=== PATIENT | female | born 1930 | race Caucasian/White ===

== ENCOUNTER 2018-06-09 12:28 | Inpatient (IN) ==
[2018-06-09 13:17] LABS: Baso # (Auto) 0.1 th/mm3 (0.0-0.2); Baso % (Auto) 0.5 % (0.0-2.0); Eos # (Auto) 0.1 th/mm3 (0.0-0.4); Eos % (Auto) 0.9 % (0.0-4.0); Hemoglobin 14.6 gm/dL (11.6-15.3); Lymph # (Auto) 0.8 th/mm3 (1.0-4.8); Lymph % (Auto) 7.5 % (9.0-44.0); Mean Corpuscular HGB Conc 33.8 % (32.0-36.0); Mean Corpuscular Hemoglobin 29.2 pg (27.0-34.0); Mean Corpuscular Volume 86.2 fL (80.0-100.0); Mono # (Auto) 0.4 th/mm3 (0.0-0.9); Mono % (Auto) 3.3 % (0.0-8.0); Neut # (Auto) 9.6 th/mm3 (1.8-7.7); Neut % (Auto) 87.8 % (16.0-70.0); Platelet Count 213 th/mm3 (150-450); Red Blood Count 4.99 mil/mm3 (4.00-5.30); Red Cell Distribution Width 15.2 % (11.6-17.2); White Blood Count 10.9 th/mm3 (4.0-11.0)
--- NOTE | 2018-06-09 13:22 | ED ---
HPI General Chief Complaint: Fall Stated Complaint: FALL Time Seen by Provider: 06/09/18 12:37 Source: patient and family Mode of arrival: EMS Limitations: other (dementia) History of Present Illness HPI Narrative: 87-year-old female the presents to the ED via EVAC for evaluation of fall. Patient had a mechanical fall today. Apparently she was on a bedpan when she fell and landed on her right hip. Patient is complaining of pain of the hip since. No head injury. She does take Coumadin. She has any chest pain or shortness of breath. No abdominal pain. She has a chronic history of dementia as well as A. fib. She also has history of diabetes and has a chronic wound to her right leg that is currently being evaluated by her doctor. She states that her pain currently 6 out of 10. More on the hip when she moves. No shortening per ambulance report. Patient appears to be a decent historian but cannot really give me much history about her medication secondary to her dementia. Family was not initially at bedside. Related Data Home Medications Medication Instructions Recorded Confirmed atenolol 50 mg PO BID 06/09/18 06/09/18 digoxin 0.125 mg PO DAILY 06/09/18 06/09/18 doxazosin 1 mg PO DAILY 06/09/18 06/09/18 glipizide 5 mg PO DAILY 06/09/18 06/09/18 metformin 1,000 mg PO BID 06/09/18 06/09/18 warfarin 5 mg PO QTUTHSASU 06/09/18 06/09/18 warfarin 7.5 mg PO 3XW 06/09/18 06/09/18 Allergies Allergy/AdvReac Type Severity Reaction Status Date / Time penicillin G Allergy Severe Rash Verified 06/09/18 14:14 Review of Systems ROS Unobtainable All other systems reviewed negative except as stated in HPI [facility] Medical History Medical History A-fib (Acute) Dementia (Acute) Diabetes mellitus (Acute) Hearing difficulty (Acute) Hypertension (Acute) Social History Social History Substance History: No History of Abuse Smoking Status: Unknown if ever smoked How Often Do You Have a Drink Containing Alcohol: Never Recent Travel in [facility] within the Last 8 Weeks: No Recent Out of Country Travel within the Last 8 Weeks: No Immunization History Tetanus Immunization: Unable to Assess Hx Influenza Vaccine This Season: Unable to Assess Exam Narrative Exam Narrative: GENERAL: Well-appearing SKIN: Focused skin assessment warm/dry. HEAD: Atraumatic. Normocephalic. EYES: Pupils equal and round. No scleral icterus. No injection or drainage. ENT: No nasal bleeding or discharge. Mucous membranes pink and moist. Tongue is midline. No uvula deviation. NECK: Trachea midline. No JVD. CARDIOVASCULAR: Regular rate and rhythm. No murmur appreciated. RESPIRATORY: No accessory muscle use. Clear to auscultation. Breath sounds equal bilaterally. GASTROINTESTINAL: Abdomen soft, non-tender, nondistended. Hepatic and splenic margins not palpable. MUSCULOSKELETAL: No obvious deformities. No clubbing. No cyanosis. No edema. Full range of motion of the upper and lower extremities bilaterally. 2+ pulses bilaterally. Patient does have pain with any range of motion of the right hip. Some bruising noted. No shortening noted. 2+ pulses in the lower extremities bilaterally. Neurovascular intact. NEUROLOGICAL: Awake and alert. No obvious cranial nerve deficits. Motor grossly within normal limits. Normal speech. PSYCHIATRIC: Appropriate mood and affect; insight and judgment normal. Course Initial Documented Vital Signs Pulse Rate 74 06/09/18 12:32 Respiratory Rate 16 06/09/18 12:32 Blood Pressure 168/90 H 06/09/18 12:32 Pulse Oximetry 96 06/09/18 12:32 Last Documented Vital Signs Temperature 98.6 F 06/09/18 16:26 Pulse Rate 103 H 06/09/18 16:26 Respiratory Rate 22 06/09/18 16:26 Blood Pressure 148/93 H 06/09/18 16:26 Pulse Oximetry 94 L 06/09/18 16:26 Medical Decision Making JAYLAN Attestation JAYLAN supervised visit: Yes Attestation: I, Dr. Nunez, have reviewed the advance practice practitioner's documentation and am in agreement, met with the patient face to face, made the diagnosis, and the medical decision making was done by me. *My assessment and Findings: Closed hip fracture. Anticoagulated. Plan is to reverse anticoagulation so that she can have repair tomorrow. Case was discussed with Dr. Corona Luna who is agreement with the plan. [facility] Narrative Medical decision making narrative: 87-year-old female that presents to the ED for evaluation of fall and hip injury. Patient was properly examined and was found to have signs and symptoms consistent with appears to be possible hip injury. X-rays were ordered. Labs were ordered. Labs and imaging showed no sign of acute disease alert and what appears to be right hip fracture. Case discussed with Dr. Luna who agrees to admit to medicine in consult to him. He does want us to reverse the Coumadin for possible surgery tomorrow morning depending on INR. Case was discussed with Dr. Michelle who agrees to admission to his service. He does agree with FFP. This was ordered. My attending Dr. Nunez was made aware of all findings and agrees with plan. Differential Diagnosis Differential Diagnosis: Fracture versus sprain versus strain versus bruise versus contusion Medical Records Medical records reviewed: Yes I reviewed the patient's medical records. Lab Data Lab results reviewed: Yes I reviewed the patient's lab results. Lab results narrative: INR of 2 UA shows possible UTI Result diagrams: 06/09/18 13:04 06/09/18 13:04 Lab Results 06/09/18 06/09/18 06/09/18 Range/Units 13:04 13:04 13:04 WBC 10.9 (4.0-11.0) th/mm3 RBC 4.99 (4.00-5.30) mil/mm3 Hgb 14.6 (11.6-15.3) gm/dL Hct 43.0 (35.0-46.0) % MCV 86.2 (80.0-100.0) fL MCH 29.2 (27.0-34.0) pg MCHC 33.8 (32.0-36.0) % RDW 15.2 (11.6-17.2) % Plt Count 213 (150-450) th/mm3 MPV 8.0 (7.0-11.0) fL Neut % (Auto) 87.8 H (16.0-70.0) % Lymph % (Auto) 7.5 L (9.0-44.0) % Traill % (Auto) 3.3 (0.0-8.0) % Eos % (Auto) 0.9 (0.0-4.0) % Baso % (Auto) 0.5 (0.0-2.0) % Neut # (Auto) 9.6 H (1.8-7.7) th/mm3 Lymph # (Auto) 0.8 L (1.0-4.8) th/mm3 Traill # (Auto) 0.4 (0.0-0.9) th/mm3 Eos # (Auto) 0.1 (0.0-0.4) th/mm3 Baso # (Auto) 0.1 (0.0-0.2) th/mm3 WBC Differential . Differential Comment Auto diff final PT 19.8 H (9.8-11.6) sec INR 2.0 Ratio Sodium 132 L (136-145) meq/L Potassium 4.0 (3.5-5.1) meq/L Chloride 96 L (98-107) meq/L Carbon Dioxide 27.8 (21.0-32.0) meq/L Anion Gap 8 (5-15) meq/L BUN 14 (7-18) mg/dL Creatinine 0.72 (0.50-1.00) mg/dL Estimated GFR 76 L (>89) mL/min Random Glucose 129 H (74-106) mg/dL Calcium 9.4 (8.5-10.1) mg/dL Urine Color (Yellw/Straw) Urine Clarity (Clear) Urine pH (5.0-8.5) Ur Specific [place] (1.002-1.035) Urine Protein (Neg-Trace) mg/dL Urine Glucose (UA) (Negative) mg/dL Urine Ketones (Negative) mg/dL Urine Occult Blood (Negative) Urine Nitrate (Negative) Urine Bilirubin (Negative) Urine Urobilinogen (Less than 2) mg/dL Ur Leukocyte Esterase (Negative) Urine RBC (0-3) /hpf Urine WBC (0-5) /hpf Ur Squamous Epith Cells (0-5) /hpf Micro UA Comment Urine Culture Comments Blood Type Blood Type Recheck Antibody Screen Blood Bank Comment 06/09/18 06/09/18 06/09/18 Range/Units 13:26 14:50 14:50 WBC (4.0-11.0) th/mm3 RBC (4.00-5.30) mil/mm3 Hgb (11.6-15.3) gm/dL Hct (35.0-46.0) % MCV (80.0-100.0) fL MCH (27.0-34.0) pg MCHC (32.0-36.0) % RDW (11.6-17.2) % Plt Count (150-450) th/mm3 MPV (7.0-11.0) fL Neut % (Auto) (16.0-70.0) % Lymph % (Auto) (9.0-44.0) % Traill % (Auto) (0.0-8.0) % Eos % (Auto) (0.0-4.0) % Baso % (Auto) (0.0-2.0) % Neut # (Auto) (1.8-7.7) th/mm3 Lymph # (Auto) (1.0-4.8) th/mm3 [place] # (Auto) (0.0-0.9) th/mm3 Eos # (Auto) (0.0-0.4) th/mm3 Baso # (Auto) (0.0-0.2) th/mm3 WBC Differential Differential Comment PT (9.8-11.6) sec INR Ratio Sodium (136-145) meq/L Potassium (3.5-5.1) meq/L Chloride (98-107) meq/L Carbon Dioxide (21.0-32.0) meq/L Anion Gap (5-15) meq/L BUN (7-18) mg/dL Creatinine (0.50-1.00) mg/dL Estimated GFR (>89) mL/min Random Glucose (74-106) mg/dL Calcium (8.5-10.1) mg/dL Urine Color Yellow (Yellw/Straw) Urine Clarity Hazy H (Clear) Urine pH 6.0 (5.0-8.5) Ur Specific [place] 1.012 (1.002-1.035) Urine Protein 30 H (Neg-Trace) mg/dL Urine Glucose (UA) 150 H (Negative) mg/dL Urine Ketones Trace H (Negative) mg/dL Urine Occult Blood Small H (Negative) Urine Nitrate Negative (Negative) Urine Bilirubin Negative (Negative) Urine Urobilinogen Less than 2 (Less than 2) mg/dL Ur Leukocyte Esterase Small H (Negative) Urine RBC 2 (0-3) /hpf Urine WBC 41 H (0-5) /hpf Ur Squamous Epith Cells 1 (0-5) /hpf Micro UA Comment Culture indicated Urine Culture Comments Culture indicated Blood Type O Positive Blood Type Recheck Not needed Antibody Screen Negative Blood Bank Comment Imaging Data Attestation: I personally reviewed and interpreted this imaging study as follows : Radiologist's impression: Hip X-Ray 06/09/18 12:45 CONCLUSION: Basicervical hip fracture. Pelvis CT 06/09/18 14:20 CONCLUSION: 1. Right transcervical hip fracture which is partially displaced consistent with a grade 3 Garden classification. Chest X-Ray 06/09/18 14:46 CONCLUSION: No acute cardiopulmonary disease. Discharge Plan Discharge Disposition Patient Disposition: 30 Still Patient Discharge Details Diagnosis: Closed hip fracture Physicians Team ED Provider: Davi Nunez ED Midlevel Provider: Derick Montesinos Primary Care Provider: Capo Coffman Attending Provider: Sherif Brock Status ED Status: Admitted Patient
[2018-06-09 13:26] LABS: Prothrombin Time 19.8 sec (9.8-11.6)
[2018-06-09 13:34] LABS: Calcium 9.4 mg/dL (8.5-10.1); Carbon Dioxide 27.8 meq/L (21.0-32.0)
[2018-06-09 14:18] LABS: Bilirubin,Urine Negative (Negative); Clarity,Urine Hazy (Clear); Color,Urine Yellow (Yellw/Straw); Glucose,Urine (UA) 150 mg/dL (Negative); Leukocyte Esterase,Urine Small (Negative); Nitrite,Urine Negative (Negative); Specific Gravity,Urine 1.012 (1.002-1.035); Squamous Epithelial Cell,Urine 1 /hpf (0-5)
--- NOTE | 2018-06-09 14:28 | XR ---
EXAM DATE: 06/09/2018 2:02 PM EDT AGE/SEX: 87 years / Female INDICATIONS: Right hip pain after falling today. CLINICAL DATA: This is the patient's initial encounter. Patient reports that signs and symptoms have been present for 1 day and indicates a pain score of 6/10. MEDICAL/SURGICAL HISTORY: Hypertension. Diabetes mellitus type II. None. COMPARISON: No prior exams available for comparison. FINDINGS: AP and crosstable lateral views of the right hip were obtained and demonstrate a basicervical hip fra cture. There is mild superior migration of the more distal femur. There is diffuse osteopenia. The pubic rami are intact. CONCLUSION: Basicervical hip fracture. Electronically signed by: Nimesh Prather MD 06/09/2018 2:26 PM EDT
[2018-06-09] MEDS ORDERED: Morphine Inj 4 MG/ML Vial IV.PUSH ONE (14:37)
--- NOTE | 2018-06-09 15:24 | XR ---
EXAM DATE: 06/09/2018 3:01 PM EDT AGE/SEX: 87 years / Female INDICATIONS: Fell today, pain right chest and pelvis CLINICAL DATA: This is the patient's initial encounter. Patient reports that signs and symptoms have been present for 1 day and indicates a pain score of 5/10. MEDICAL/SURGICAL HISTORY: . right hip fracture None. COMPARISON: No prior exams available for comparison. FINDINGS: A single AP view of the chest demonstrates the lungs to be symmetrically aerated without evidence of mass, infiltrate or effusion. The cardiomediastinal contours are unremarkable. Osseous structures a re intact. Atherosclerotic changes are present in the aorta. CONCLUSION: No acute cardiopulmonary disease. Electronically signed by: Nimesh Prather MD 06/09/2018 3:23 PM EDT
--- NOTE | 2018-06-09 15:32 | CT ---
EXAM DATE: 06/09/2018 3:16 PM EDT AGE/SEX: 87 years / Female INDICATIONS: Trauma, patient fell injuring pelvis. Evaluate for hematoma and fracture. Right hip fra cture on x-ray. CLINICAL DATA: This is the patient's initial encounter. Patient reports that signs and symptoms have been present for 1 day and indicates a pain score of 10/10. MEDICAL/SURGICAL HISTORY: Diabetes. Hypertension. dementia None. RADIATION DOSE: 23.93 CTDI (mGy) COMPARISON: [facility], HIP RIGHT W AP PELVIS 2V, 06/09/2018. . TECHNIQUE: Multiple contiguous helical axial images were obtained through pelvis following bolus inf usion of 95 ml Omnipaque 350 (iohexol) nonionic water-soluble contrast as a single exam dose. Imag es were obtained using multiple row detector helical technique. . Using automated exposure control an d adjustment of the mA and/or kV according to patient size, radiation dose was kept as low as reasona leonard achievable to obtain optimal diagnostic quality images. DICOM format image data is available eduardo ctronically for review and comparison. FINDINGS: Bowel/Mesentery: The bowel loops are grossly unremarkable. The sigmoid colon has a normal configura tion. Bladder: Contours are smooth. No filling defects are seen on the delayed images. Retroperitoneum: No evidence of deep pelvic adenopathy. Reproductive Organs: No abnormal masses or calcifications seen. Inguinal: The inguinal region is unremarkable without evidence of adenopathy. Bony Structures: There is diffuse osteopenia. There is mild scoliosis and degenerative change in the lower lumbar spine. There is a transcervical fracture which is partially displaced consistent with a grade 3 Garden classification. There is mild superior migration of the distal femur. The acetabulum is intact. The left hip is intact as well. The sacrum and sacroiliac joints are intact as well. Free Fluid: None seen. Post Contrast: No abnormal areas of enhancement seen. CONCLUSION: 1. Right transcervical hip fracture which is partially displaced consistent with a grade 3 Garden cl assification. Electronically signed by: Nimesh Prather MD 06/09/2018 3:30 PM EDT
--- NOTE | 2018-06-09 17:29 | P.HPIM ---
History of Present Illness Service: Pt is 87 yo with afib on coumadin, htn, dm 2 who presents to ED with hip pain. Son her caregiver is present. Says she slipped on stool on floor in her bathroom. Son says she intermittently has stool incontinence. She is found to have hip fracture and Ortho notified by ED and I'm told surgery planned for tomorrow. INR 2 and ffp and vit k given in ED. She seems comfortable after morphine 4mg iv. Son understands the cardiopulmonary risk and risk of with surgery but he wants to proceed to OR as she will certainly w/out hip repair. PMH/PSH htn atrial fib. dm 2 dementia appe. left ear surgery fh. nc sh. no etoh/tob Primary Care Physician: Capo Coffman MD - Diagnosis (1) Hip fracture, right Inpatient Certification: I certify that the inpatient services were ordered in accordance with Medicare regulations governing the order. This includes certification that hospital inpatient services are reasonable and necessary and in the case of services not specified as inpatient-only under 42 CFR 419.22(n), that they are appropriately provided as inpatient services in accordance to with the 2-midnight benchmark under 43 CFR 412.3(e) Review of Systems hip pain slip and fall PMFSH - History History Provided By: Patient, [employer] / EMT - Medical History Medical History: Medical History (Last Reviewed 06/09/18 @ 13:19 by ALEENA Agarwal) A-fib Dementia Diabetes mellitus Hearing difficulty Hypertension - Tobacco History Smoking Status: Unknown if ever smoked - Alcohol History How Often Do You Have a Drink Containing Alcohol: Never - Substance Use History Substance History: No History of Abuse - Travel History Recent Travel in the [place] Within the Last 8 Weeks: No Recent Travel Out of the Country Within the Last 8 Weeks: No - Immunization History Tetanus Immunization: Unable to Assess Hx Influenza Vaccine This Season: Unable to Assess Medications and Allergies Allergies Allergy/AdvReac Type Severity Reaction Status Date / Time penicillin G Allergy Severe Rash Verified 06/09/18 14:14 Home Medications Medication Instructions Recorded Confirmed Type atenolol 50 mg PO BID 06/09/18 06/09/18 History digoxin 0.125 mg PO DAILY 06/09/18 06/09/18 History doxazosin 1 mg PO DAILY 06/09/18 06/09/18 History glipizide 5 mg PO DAILY 06/09/18 06/09/18 History metformin 1,000 mg PO BID 06/09/18 06/09/18 History warfarin 5 mg PO QTUTHSASU 06/09/18 06/09/18 History warfarin 7.5 mg PO 3XW 06/09/18 06/09/18 History Exam Vital signs: Vital Signs 06/09/18 12:32 06/09/18 12:39 06/09/18 12:55 Temperature Pulse Rate 74 79 80 Respiratory Rate 16 16 16 Blood Pressure 168/90 H 189/87 H 189/87 H Pulse Oximetry 96 100 97 06/09/18 15:23 06/09/18 16:06 06/09/18 16:25 Temperature Pulse Rate 102 H Respiratory Rate 17 16 Blood Pressure 144/73 H Pulse Oximetry 94 L 95 06/09/18 16:26 06/09/18 16:45 06/09/18 17:12 Temperature 98.6 F Pulse Rate 103 H 111 H 110 H Respiratory Rate 22 20 20 Blood Pressure 148/93 H 150/86 H 147/82 H Pulse Oximetry 94 L 98 97 Intake & Output 06/08/18 06/09/18 06/09/18 18:59 06:59 18:59 Intake Total 0 / 0 Balance 0 / 0 Weight 58.967 kg Intake: Intake (Blood Product) Amt 0 / 0 Plasma Thawed 5 Day Cp2d Unit 0 / 0 [id number] heart irreg lung cta abd s/nt ext no edema currently oriented. follows commands right leg externally rotated. good pulses. Results - Labs CBC & Chem 7: 06/09/18 13:04 06/09/18 13:04 Labs: Short CBC 06/09/18 Range/Units 13:04 WBC 10.9 (4.0-11.0) th/mm3 Hgb 14.6 (11.6-15.3) gm/dL Hct 43.0 (35.0-46.0) % Plt Count 213 (150-450) th/mm3 BMP 06/09/18 13:04 Sodium 132 L Potassium 4.0 Chloride 96 L Carbon Dioxide 27.8 BUN 14 Creatinine 0.72 Calcium 9.4 Urine 06/09/18 Range/Units 13:26 Urine Color Yellow (Yellw/Straw) Urine Clarity Hazy H (Clear) Urine pH 6.0 (5.0-8.5) Ur Specific [place] 1.012 (1.002-1.035) Urine Protein 30 H (Neg-Trace) mg/dL Urine Glucose (UA) 150 H (Negative) mg/dL - Imaging Impressions Hip X-Ray 06/09/18 12:45 CONCLUSION: Basicervical hip fracture. Pelvis CT 06/09/18 14:20 CONCLUSION: 1. Right transcervical hip fracture which is partially displaced consistent with a grade 3 Garden classification. Chest X-Ray 06/09/18 14:46 CONCLUSION: No acute cardiopulmonary disease. Caprini VTE Risk Assessment Caprini VTE Risk Assessment: Moderate/High Risk (score >= 2) Caprini Risk Assessment Model: Point Value = 1 Point Value = 2 Point Value = 3 Point Value = 5 Age 41-60 Minor surgery BMI > 25 kg/m2 Swollen legs Varicose veins or History of unexplained or recurrent spontaneous Oral contraceptives or hormone replacement Sepsis (< 1 month) Serious lung disease, including pneumonia (< 1 month) Abnormal pulmonary function Acute myocardial infarction Congestive heart failure (< 1 month) History of inflammatory bowel disease Medical patient at bed rest Age 61-74 Arthroscopic surgery Major open surgery (> 45 min) Laparoscopic surgery (> 45 min) Malignancy Confined to bed (> 72 hours) Immobilizing plaster cast Central venous access Age >= 75 History of VTE Family history of VTE Factor V Leiden Prothrombin [id number] Lupus anticoagulant Anticardiolipin antibodies Elevated serum homocysteine Heparin-induced thrombocytopenia Other congenital or acquired thrombophilia Stroke (< 1 month) Elective arthroplasty Hip, pelvis, or leg fracture Acute spinal cord injury (< 1 month) Prophylaxis Regimen: Total Risk Factor Score Risk Level Prophylaxis Regimen 0-1 Low Early ambulation 2 Moderate Order ONE of the following: *Sequential Compression Device (SCD) *Heparin 5000 units SQ BID 3-4 Higher Order ONE of the following medications: *Heparin 5000 units SQ TID *Enoxaparin/Lovenox 40 mg SQ daily (WT < 150 kg, CrCl > 30 mL/min) *Enoxaparin/Lovenox 30 mg SQ daily (WT < 150 kg, CrCl > 10-29 mL/min) *Enoxaparin/Lovenox 30 mg SQ BID (WT < 150 kg, CrCl > 30 mL/min) AND/OR *Sequential Compression Device (SCD) 5 or more Highest Order ONE of the following medications: *Heparin 5000 units SQ TID (Preferred with Epidurals) *Enoxaparin/Lovenox 40 mg SQ daily (WT < 150 kg, CrCl > 30 mL/min) *Enoxaparin/Lovenox 30 mg SQ daily (WT < 150 kg, CrCl > 10-29 mL/min) *Enoxaparin/Lovenox 30 mg SQ BID (WT < 150 kg, CrCl > 30 mL/min) AND *Sequential Compression Device (SCD) Assessment and Plan - Assessment (1) Hip fracture, right Code(s): S72.001A - Fracture of unspecified part of neck of right femur, initial encounter for closed fracture Status: Acute Plan: 1. right hip fracture. s/p slip and fall. pt is currently receiving ffp and vit k. will reassess inr in AM ekg ordered and pending ortho consulted and pt/son ok with proceeding to OR for necessary surgical repair of this fx diabetic diet tonight. ssi. hold oha. npo after MN for probabl surgery tomorrow cont other home meds for afib/htn PT eval consult CM for snf. 2. afib. anticoagulated 3. dm 2 4. htn
[2018-06-09] MEDS ORDERED: Dextrose 50% in Water 50 ML Vial IV.PUSH PRN (17:37)
[2018-06-09] MEDS: Insulin NovoLOG Aspart Correctional Sugar Inj SQ SCH (22:52)
[2018-06-09] MEDS: Atenolol 50 MG Tablet PO SCH (22:52)
--- NOTE | 2018-06-10 07:20 | MB ---
cc: Timmy Mendoza MD DATE: 06/10/2018 REASON FOR CONSULTATION: Right femoral neck fracture. HISTORY OF PRESENT ILLNESS: Annie is an 87-year-old female who has a history of atrial fibrillation, hypertension and type 2 diabetes. She slipped and fell in the bathroom. She landed on her right side. She had immediate right hip pain. She was unable to stand or ambulate. She presented to the emergency room. X-rays revealed a displaced right femoral neck fracture. She is currently awake and alert on the orthopedic floor. Her only complaint is her right hip. Pain is worse with movement. She denies dizziness, syncope, or loss of consciousness. PAST MEDICAL HISTORY: Hypertension, atrial fibrillation, diabetes, and hearing loss. SOCIAL HISTORY: The patient lives at home independently. She denies alcohol, tobacco or drug use. FAMILY HISTORY: Noncontributory. REVIEW OF SYSTEMS: The patient denies fevers or chills, weight loss, headache, visual changes, hearing loss, chest pain, palpitations, shortness of breath, nausea or vomiting, diarrhea, neck pain, back pain, skin rashes, weakness or numbness of extremities, anxiety or depression. She has chronic urinary incontinence. She complains of right hip pain. LABORATORY DATA: The patient has an elevated INR of 2.0 on 06/09/2018. White blood cell count is 10.9, hematocrit is 43.0, platelet count is 213. Creatinine is 0.72, potassium is 4.0. IMAGING STUDIES: X-rays and CT scan of right hip were reviewed. X-rays reveal a displaced right femoral neck fracture. PHYSICAL EXAMINATION: GENERAL: The patient is a well-developed, well-nourished 87-year-old female. She is awake and alert. She is in no acute distress. She appears well-developed and well-nourished. She is mildly overweight. VITAL SIGNS: Temperature 98.8, pulse 107, respirations 20, blood pressure 153/96, O2 saturations 99% on 2 liters nasal cannula. HEENT: Head: The patient is normocephalic. Pupils are equal. NECK: Soft, nontender. The trachea is in the midline. ABDOMEN: Soft, nontender and nondistended. EXTREMITIES: Examination of the bilateral upper extremities reveals no pain with shoulder, elbow or wrist motion. She has intact sensation in all fingers. She has good cap refill in all fingers. Skin is intact to both hands. Examination of the left leg reveals no pain with hip, knee or ankle motion. Skin is intact. Dorsalis pedis pulse is palpable. Sensation is intact in the left foot. Examination of the right leg reveals pain with any hip motion. She has minimal tenderness around her knee, tibia or ankle. She has good capillary refill in all her toes. Sensation is intact to the right foot. IMPRESSION: 1. Diabetes. 2. Hypertension. 3. Atrial fibrillation. 4. Displaced right femoral neck fracture. PLAN: Treatment options were discussed with the patient. At this point, I would recommend right hip hemiarthroplasty. The risks of surgery included bleeding, infection; injury to arteries, nerves and vessels; nonunion, hip dislocation, leg length discrepancies as well as medical complications including blood clot, stroke, heart attack and . All questions were answered. I will plan on surgery today if she is medically cleared. The patient's INR will need to be corrected. She has received vitamin K and fresh frozen plasma. I will recheck INR today. Postoperatively, the patient will be placed back on her Coumadin. Physical therapy will be consulted. A mid-level provider in my office, nurse practitioner or PA, may see this patient on a follow-up basis and continue to implement the objective of this plan including: Starting or adjusting medications, injections of muscle, tendon, bursa or joints, cast application, orthotic or brace application, physical therapy, further radiographic studies including x-ray, MRI, CT, ultrasounds or bone scan, vascular studies, neurologic studies, or other specialist consultations, and proceeding with surgical management as appropriate. MD BAMBI Torres/DAVID , 07:02 AM , 07:19 AM
[2018-06-10] MEDS: Insulin NovoLOG Aspart Correctional Sugar Inj SQ SCH ×4 (08:01→21:02)
[2018-06-10] MEDS: Atenolol 50 MG Tablet PO SCH ×2 (08:01→21:04)
[2018-06-10] MEDS: Doxazosin 1 MG Tablet PO SCH (08:17)
[2018-06-10] MEDS ORDERED: SODIUM CHLOR 0.9% IV.SIG SCH (08:48)
[2018-06-10] MEDS ORDERED: TRANEXAMIC ACID IV.SIG SCH (08:48)
[2018-06-10 09:11] LABS: Hematocrit 43.7 % (35.0-46.0); Hemoglobin 14.6 gm/dL (11.6-15.3); Mean Corpuscular HGB Conc 33.4 % (32.0-36.0); Mean Corpuscular Hemoglobin 28.4 pg (27.0-34.0); Mean Corpuscular Volume 85.1 fL (80.0-100.0); Platelet Count 183 th/mm3 (150-450); Red Blood Count 5.13 mil/mm3 (4.00-5.30); Red Cell Distribution Width 15.6 % (11.6-17.2); White Blood Count 12.5 th/mm3 (4.0-11.0)
[2018-06-10 09:24] LABS: INR 1.2 Ratio; Prothrombin Time 11.9 sec (9.8-11.6)
--- NOTE | 2018-06-10 09:29 | P.PNIM ---
Subjective Interval history: Pt not having much pain this morning She is NPO awaiting surgery today Vitals are stable Physical Exam Vital signs: Vital Signs 06/09/18 12:32 06/09/18 12:39 06/09/18 12:55 Temperature Pulse Rate 74 79 80 Respiratory Rate 16 16 16 Blood Pressure 168/90 H 189/87 H 189/87 H Pulse Oximetry 96 100 97 06/09/18 15:23 06/09/18 16:06 06/09/18 16:25 Temperature Pulse Rate 102 H Respiratory Rate 17 16 Blood Pressure 144/73 H Pulse Oximetry 94 L 95 06/09/18 16:26 06/09/18 16:45 06/09/18 17:12 Temperature 98.6 F Pulse Rate 103 H 111 H 110 H Respiratory Rate 22 20 20 Blood Pressure 148/93 H 150/86 H 147/82 H Pulse Oximetry 94 L 98 97 06/09/18 17:29 06/09/18 17:42 06/09/18 17:44 Temperature 98.8 F 98.8 F Pulse Rate 104 H 106 H 107 H Respiratory Rate 20 20 20 Blood Pressure 158/102 H 153/96 H 153/96 H Pulse Oximetry 99 100 99 06/09/18 19:30 06/09/18 20:00 06/10/18 00:00 Temperature 97.7 F 97.7 F Pulse Rate 102 H 121 H 97 H Respiratory Rate 18 20 20 Blood Pressure 167/77 H 170/99 H 159/87 H Pulse Oximetry 97 96 96 Intake & Output 06/09/18 06/10/18 06/10/18 18:59 06:59 18:59 Intake Total 343 / 343 Balance 343 / 343 Weight 58.967 kg Intake: Intake (Blood Product) Amt 343 / 343 Plasma Thawed 5 Day Cp2d Unit 343 / 343 [id number] Other: # Voids 4 Narrative: GENERAL: NAD, Awake and alert, pleasantly confused CARDIO: Irregularly irregular. RESP: CTA bilaterally. No accessory muscle use. ABD: +BS, soft, non-tender, nondistended. EXT: No edema. Results - Labs CBC & Chem 7: 06/10/18 08:18 06/09/18 13:04 Laboratory Results - last 24 hr 06/09/18 06/09/18 06/09/18 13:04 13:04 13:04 WBC 10.9 RBC 4.99 Hgb 14.6 Hct 43.0 MCV 86.2 MCH 29.2 MCHC 33.8 RDW 15.2 Plt Count 213 MPV 8.0 Neut % (Auto) 87.8 H Lymph % (Auto) 7.5 L [place] % (Auto) 3.3 Eos % (Auto) 0.9 Baso % (Auto) 0.5 Neut # (Auto) 9.6 H Lymph # (Auto) 0.8 L [place] # (Auto) 0.4 Eos # (Auto) 0.1 Baso # (Auto) 0.1 WBC Differential . Differential Comment Auto diff final PT 19.8 H INR 2.0 Sodium 132 L Potassium 4.0 Chloride 96 L Carbon Dioxide 27.8 Anion Gap 8 BUN 14 Creatinine 0.72 Estimated GFR 76 L POC Glucose Random Glucose 129 H Calcium 9.4 Urine Color Urine Clarity Urine pH Ur Specific [place] Urine Protein Urine Glucose (UA) Urine Ketones Urine Occult Blood Urine Nitrate Urine Bilirubin Urine Urobilinogen Ur Leukocyte Esterase Urine RBC Urine WBC Ur Squamous Epith Cells Micro UA Comment Urine Culture Comments Blood Type Blood Type Recheck Antibody Screen Blood Bank Comment 06/09/18 06/09/18 06/09/18 13:26 14:50 14:50 WBC RBC Hgb Hct MCV MCH MCHC RDW Plt Count MPV Neut % (Auto) Lymph % (Auto) [place] % (Auto) Eos % (Auto) Baso % (Auto) Neut # (Auto) Lymph # (Auto) [place] # (Auto) Eos # (Auto) Baso # (Auto) WBC Differential Differential Comment PT INR Sodium Potassium Chloride Carbon Dioxide Anion Gap BUN Creatinine Estimated GFR POC Glucose Random Glucose Calcium Urine Color Yellow Urine Clarity Hazy H Urine pH 6.0 Ur Specific [place] 1.012 Urine Protein 30 H Urine Glucose (UA) 150 H Urine Ketones Trace H Urine Occult Blood Small H Urine Nitrate Negative Urine Bilirubin Negative Urine Urobilinogen Less than 2 Ur Leukocyte Esterase Small H Urine RBC 2 Urine WBC 41 H Ur Squamous Epith Cells 1 Micro UA Comment Culture indicated Urine Culture Comments Culture indicated Blood Type O Positive Blood Type Recheck Not needed Antibody Screen Negative Blood Bank Comment 06/09/18 06/09/18 06/10/18 21:20 21:22 07:57 WBC RBC Hgb Hct MCV MCH MCHC RDW Plt Count MPV Neut % (Auto) Lymph % (Auto) [place] % (Auto) Eos % (Auto) Baso % (Auto) Neut # (Auto) Lymph # (Auto) [place] # (Auto) Eos # (Auto) Baso # (Auto) WBC Differential Differential Comment PT INR Sodium Potassium Chloride Carbon Dioxide Anion Gap BUN Creatinine Estimated GFR POC Glucose 211 H 185 H 158 H Random Glucose Calcium Urine Color Urine Clarity Urine pH Ur Specific [place] Urine Protein Urine Glucose (UA) Urine Ketones Urine Occult Blood Urine Nitrate Urine Bilirubin Urine Urobilinogen Ur Leukocyte Esterase Urine RBC Urine WBC Ur Squamous Epith Cells Micro UA Comment Urine Culture Comments Blood Type Blood Type Recheck Antibody Screen Blood Bank Comment 06/10/18 06/10/18 08:18 08:18 WBC 12.5 H RBC 5.13 Hgb 14.6 Hct 43.7 MCV 85.1 MCH 28.4 MCHC 33.4 RDW 15.6 Plt Count 183 MPV 8.0 Neut % (Auto) Lymph % (Auto) [place] % (Auto) Eos % (Auto) Baso % (Auto) Neut # (Auto) Lymph # (Auto) [place] # (Auto) Eos # (Auto) Baso # (Auto) WBC Differential Differential Comment PT Cancelled INR Cancelled Sodium Potassium Chloride Carbon Dioxide Anion Gap BUN Creatinine Estimated GFR POC Glucose Random Glucose Calcium Urine Color Urine Clarity Urine pH Ur Specific [place] Urine Protein Urine Glucose (UA) Urine Ketones Urine Occult Blood Urine Nitrate Urine Bilirubin Urine Urobilinogen Ur Leukocyte Esterase Urine RBC Urine WBC Ur Squamous Epith Cells Micro UA Comment Urine Culture Comments Blood Type Blood Type Recheck Antibody Screen Blood Bank Comment - Imaging Impressions Hip X-Ray 06/09/18 12:45 CONCLUSION: Basicervical hip fracture. Pelvis CT 06/09/18 14:20 CONCLUSION: 1. Right transcervical hip fracture which is partially displaced consistent with a grade 3 Garden classification. Chest X-Ray 06/09/18 14:46 CONCLUSION: No acute cardiopulmonary disease. Assessment and Plan - Assessment (1) Hip fracture, right Code(s): S72.001A - Fracture of unspecified part of neck of right femur, initial encounter for closed fracture Status: Acute Plan: Right hip fracture, s/p slip and fall - Pt is an 87 y/o female with atrial fibrillation on chronic anticoagulation with Coumadin. - Pt had a slip and fall at home and was found to have a right transcervical hip fracture which is partially displaced consistent with a grade 3 Garden classification. - INR was 2 at admission. Pt received FFP and Vit K in the ED - Awaiting repeat INR today - Orthopedic surgery is following - Pt is tentatively planned for surgical intervention today - POst-op pain control per Ortho - Pt will need PT daily after surgery - Pts son is agreeable to SNF at the end of this hospitalization. A. fib on chronic anticoagulation with Coumadin - Cont. Digoxin - Telemetry DM, type 2 - NovoLog SSI - Accucheck HTN - Cont. home meds - Monitor
[2018-06-10 09:40] LABS: Anion Gap 11 meq/L (5-15); Blood Urea Nitrogen 12 mg/dL (7-18); Calcium 8.7 mg/dL (8.5-10.1); Carbon Dioxide 28.2 meq/L (21.0-32.0); Chloride 92 meq/L (98-107); Glomerular Filtration Rate Greater Than 89 mL/min (>89); Glucose,Random 148 mg/dL (74-106); Potassium 3.4 meq/L (3.5-5.1); Sodium 131 meq/L (136-145)
[2018-06-10] MEDS: Digoxin 125 MCG Tablet PO SCH (09:48)
--- NOTE | 2018-06-10 10:07 | ECG ---
Date Performed: 06/09/2018 Time Performed: 22:04:02 PTAGE: 87 years EKG: ATRIAL FIBRILLATION WITH RAPID VENTRICULAR RESPONSE BORDERLINE LEFT AXIS DEVIATION ST DEVIA TION AND MODERATE T-WAVE ABNORMALITY, CONSIDER LATERAL ISCHEMIA ABNORMAL ECG PREVIOUS TRACING : 06/30/2007 12.42 DOCTOR: Jay Ray Interpretating Date/Time 06/10/2018 10:05:59
[2018-06-10] MEDS ORDERED: Tranexamic Acid Inj 0 MG in Sodium Chlor 0.9% Inj 100 ML IV.SIG SCH (11:00)
[2018-06-10] MEDS ORDERED: Chlorhexidine Gluconate 2% 1 Pack (2 Cloths) TOPICAL SCH (11:15)
[2018-06-10] MEDS ORDERED: Metoprolol Tartrate 25 MG Tablet PO SCH (11:15)
--- NOTE | 2018-06-10 11:50 | P.PNOP ---
Subjective Interval history: s/p fall right hip pain. Physical Exam Vital signs: Vital Signs 06/09/18 12:32 06/09/18 12:39 06/09/18 12:55 Temperature Pulse Rate 74 79 80 Respiratory Rate 16 16 16 Blood Pressure 168/90 H 189/87 H 189/87 H Pulse Oximetry 96 100 97 06/09/18 15:23 06/09/18 16:06 06/09/18 16:25 Temperature Pulse Rate 102 H Respiratory Rate 17 16 Blood Pressure 144/73 H Pulse Oximetry 94 L 95 06/09/18 16:26 06/09/18 16:45 06/09/18 17:12 Temperature 98.6 F Pulse Rate 103 H 111 H 110 H Respiratory Rate 22 20 20 Blood Pressure 148/93 H 150/86 H 147/82 H Pulse Oximetry 94 L 98 97 06/09/18 17:29 06/09/18 17:42 06/09/18 17:44 Temperature 98.8 F 98.8 F Pulse Rate 104 H 106 H 107 H Respiratory Rate 20 20 20 Blood Pressure 158/102 H 153/96 H 153/96 H Pulse Oximetry 99 100 99 06/09/18 19:30 06/09/18 20:00 06/10/18 00:00 Temperature 97.7 F 97.7 F Pulse Rate 102 H 121 H 97 H Respiratory Rate 18 20 20 Blood Pressure 167/77 H 170/99 H 159/87 H Pulse Oximetry 97 96 96 06/10/18 08:00 Temperature 97.9 F Pulse Rate 69 Respiratory Rate 16 Blood Pressure 158/70 H Pulse Oximetry 98 Intake & Output 06/09/18 06/10/18 06/10/18 18:59 06:59 18:59 Intake Total 343 / 343 Balance 343 / 343 Weight 58.967 kg Intake: Intake (Blood Product) Amt 343 / 343 Plasma Thawed 5 Day Cp2d Unit 343 / 343 [id number] Other: # Voids 4 Narrative: RLE: pain with motion. nvi Results - Labs CBC & Chem 7: 06/10/18 08:18 06/10/18 08:18 Laboratory Results - last 24 hr 06/09/18 06/09/18 06/09/18 13:04 13:04 13:04 WBC 10.9 RBC 4.99 Hgb 14.6 Hct 43.0 MCV 86.2 MCH 29.2 MCHC 33.8 RDW 15.2 Plt Count 213 MPV 8.0 Neut % (Auto) 87.8 H Lymph % (Auto) 7.5 L [place] % (Auto) 3.3 Eos % (Auto) 0.9 Baso % (Auto) 0.5 Neut # (Auto) 9.6 H Lymph # (Auto) 0.8 L [place] # (Auto) 0.4 Eos # (Auto) 0.1 Baso # (Auto) 0.1 WBC Differential . Differential Comment Auto diff final PT 19.8 H INR 2.0 Sodium 132 L Potassium 4.0 Chloride 96 L Carbon Dioxide 27.8 Anion Gap 8 BUN 14 Creatinine 0.72 Estimated GFR 76 L POC Glucose Random Glucose 129 H Calcium 9.4 Urine Color Urine Clarity Urine pH Ur Specific [place] Urine Protein Urine Glucose (UA) Urine Ketones Urine Occult Blood Urine Nitrate Urine Bilirubin Urine Urobilinogen Ur Leukocyte Esterase Urine RBC Urine WBC Ur Squamous Epith Cells Micro UA Comment Urine Culture Comments Blood Type Blood Type Recheck Antibody Screen Blood Bank Comment 06/09/18 06/09/18 06/09/18 13:26 14:50 14:50 WBC RBC Hgb Hct MCV MCH MCHC RDW Plt Count MPV Neut % (Auto) Lymph % (Auto) [place] % (Auto) Eos % (Auto) Baso % (Auto) Neut # (Auto) Lymph # (Auto) [place] # (Auto) Eos # (Auto) Baso # (Auto) WBC Differential Differential Comment PT INR Sodium Potassium Chloride Carbon Dioxide Anion Gap BUN Creatinine Estimated GFR POC Glucose Random Glucose Calcium Urine Color Yellow Urine Clarity Hazy H Urine pH 6.0 Ur Specific [place] 1.012 Urine Protein 30 H Urine Glucose (UA) 150 H Urine Ketones Trace H Urine Occult Blood Small H Urine Nitrate Negative Urine Bilirubin Negative Urine Urobilinogen Less than 2 Ur Leukocyte Esterase Small H Urine RBC 2 Urine WBC 41 H Ur Squamous Epith Cells 1 Micro UA Comment Culture indicated Urine Culture Comments Culture indicated Blood Type O Positive Blood Type Recheck Not needed Antibody Screen Negative Blood Bank Comment 06/09/18 06/09/18 06/10/18 21:20 21:22 07:57 WBC RBC Hgb Hct MCV MCH MCHC RDW Plt Count MPV Neut % (Auto) Lymph % (Auto) [place] % (Auto) Eos % (Auto) Baso % (Auto) Neut # (Auto) Lymph # (Auto) [place] # (Auto) Eos # (Auto) Baso # (Auto) WBC Differential Differential Comment PT INR Sodium Potassium Chloride Carbon Dioxide Anion Gap BUN Creatinine Estimated GFR POC Glucose 211 H 185 H 158 H Random Glucose Calcium Urine Color Urine Clarity Urine pH Ur Specific [place] Urine Protein Urine Glucose (UA) Urine Ketones Urine Occult Blood Urine Nitrate Urine Bilirubin Urine Urobilinogen Ur Leukocyte Esterase Urine RBC Urine WBC Ur Squamous Epith Cells Micro UA Comment Urine Culture Comments Blood Type Blood Type Recheck Antibody Screen Blood Bank Comment 06/10/18 06/10/18 06/10/18 08:18 08:18 08:18 WBC 12.5 H RBC 5.13 Hgb 14.6 Hct 43.7 MCV 85.1 MCH 28.4 MCHC 33.4 RDW 15.6 Plt Count 183 MPV 8.0 Neut % (Auto) Lymph % (Auto) [place] % (Auto) Eos % (Auto) Baso % (Auto) Neut # (Auto) Lymph # (Auto) [place] # (Auto) Eos # (Auto) Baso # (Auto) WBC Differential Differential Comment PT Cancelled INR Cancelled Sodium 131 L Potassium 3.4 L Chloride 92 L Carbon Dioxide 28.2 Anion Gap 11 BUN 12 Creatinine 0.58 Estimated GFR Greater than 89 POC Glucose Random Glucose 148 H Calcium 8.7 Urine Color Urine Clarity Urine pH Ur Specific [place] Urine Protein Urine Glucose (UA) Urine Ketones Urine Occult Blood Urine Nitrate Urine Bilirubin Urine Urobilinogen Ur Leukocyte Esterase Urine RBC Urine WBC Ur Squamous Epith Cells Micro UA Comment Urine Culture Comments Blood Type Blood Type Recheck Antibody Screen Blood Bank Comment 06/10/18 08:18 WBC RBC Hgb Hct MCV MCH MCHC RDW Plt Count MPV Neut % (Auto) Lymph % (Auto) [place] % (Auto) Eos % (Auto) Baso % (Auto) Neut # (Auto) Lymph # (Auto) [place] # (Auto) Eos # (Auto) Baso # (Auto) WBC Differential Differential Comment PT 11.9 H INR 1.2 Sodium Potassium Chloride Carbon Dioxide Anion Gap BUN Creatinine Estimated GFR POC Glucose Random Glucose Calcium Urine Color Urine Clarity Urine pH Ur Specific [place] Urine Protein Urine Glucose (UA) Urine Ketones Urine Occult Blood Urine Nitrate Urine Bilirubin Urine Urobilinogen Ur Leukocyte Esterase Urine RBC Urine WBC Ur Squamous Epith Cells Micro UA Comment Urine Culture Comments Blood Type Blood Type Recheck Antibody Screen Blood Bank Comment - Imaging Impressions Hip X-Ray 06/09/18 12:45 CONCLUSION: Basicervical hip fracture. Pelvis CT 06/09/18 14:20 CONCLUSION: 1. Right transcervical hip fracture which is partially displaced consistent with a grade 3 Garden classification. Chest X-Ray 06/09/18 14:46 CONCLUSION: No acute cardiopulmonary disease. Assessment and Plan - Assessment and Plan 1) Right Femoral Neck Fx -npo -consents -surgery this AM with Reji for hemiarthroplasty E-FORMoleculera LabsE Prescription Drug Monitoring Database has been queried and verified prior to prescribing the controlled substance. Acute pain exception. This patient has normal, predicted, physiological, and time limited response to an adverse mechanical stimulus associated with surgery, trauma, or acute illness as described in my notes. There is a lack of alternative treatment options other than to include the prescribed narcotic treatment for this condition.
[2018-06-10] MEDS ORDERED: Sodium Chlor 0.9% Inj 500 ML IV.SIG SCH (12:00)
[2018-06-10] MEDS ORDERED: Clindamycin Inj 600 MG/4 ML Vial ONE (12:15)
[2018-06-10] MEDS ORDERED: Post-op Orders (for Pharmacy) OTHER STA (13:24)
--- NOTE | 2018-06-10 13:24 | P.OP ---
- Preoperative Diagnosis (1) Displaced fracture of right femoral neck Date of procedure: 06/10/18 Procedure: Right hip hemiarthroplasty Anesthesia: GETA Surgeon: Timmy Soriano MD Journey Lineman: LALO Aparicio PA-C The surgical procedure was assisted by my physician learning and development assistant. My P.A. presence was necessary throughout this case for the manipulation and positioning of the surgical extremity. My P.A. was assisting me throughout the duration of this procedure. The skill set of a physician learning and development assistant was medically necessary to complete this procedure. During the surgical case the regional vice president surgical sales was working at the back table and the physician learning and development assistant was directly assisting me. Operation and Findings: PLAN OF ACTIVITY Weight bear as tolerated. IMPLANTS USED DePuy cemented [place] size [6] stem with size [46] bipolar head and [+5] neck. DETAILS OF PROCEDURE This patient was brought into the operating room and placed on the OR table. The patient was given anesthesia. The patient received IV antibiotics. The patient was then placed in lateral decubitus position. The hip and leg were prepped with alcohol, followed by Hibiclens and draped in a usual sterile fashion. Clean air was used for this procedure. Time out procedure was performed. The procedure began with a 5 inch incision over the posterolateral hip. The subcutaneous tissue was dissected with the Bovie. The iliotibial band were split in line with fibers. The Charnley retractor was placed. The piriformis and external rotators were released from the femur and tagged with a #1 Vicryl suture. The capsule is now incised and tagged with #1 Vicryl. The femoral neck fracture was now visualized. A corkscrew was now used to remove the femoral head. The femoral head was sized and measured. Soft tissue was now protected. The hip skid was placed underneath the femoral neck. An oscillating saw was used to make a femoral neck cut. At this point attention was turned to preparation of the proximal femur. A box osteotome was used to remove the lateral cortex of the femoral neck. The T- handle reamer was used to open the femoral canal. The canal was now reamed. Next , the canal was broached up to appropriate size. A lateralizing reamer was used to help lateralize the prosthesis. At this point a trial head and neck were placed. The hip was reduced. The patient was found to have excellent stability with good range of motion. Trial components were removed. Soft tissue and bone were thoroughly irrigated. The summit stem was now opened. Cement was mixed with vancomycin powder. Cement was pressurized into the femoral canal. The stem was now placed into the proximal femur. Care was taken to keep appropriate anteversion. excess cement was removed. After cement was set, the head and neck were now impacted onto the stem. The hip was again reduced. The hip was found to have good range of motion and good stability. Leg lengths were clinically equal. The wound was thoroughly irrigated. The capsule, piriformis and iliotibial band were closed with #1 Vicryl. Subcutaneous tissue was closed with 3-0 Vicryl. The skin was closed with sandy and Dermabond. A sterile dressing was applied with Primapore. The patient was placed into a knee immobilizer. The patient was awakened and transferred to the recovery room in stablecondition. Needle and sponge counts were correct.
[2018-06-10] MEDS ORDERED: fentaNYL Citrate Inj 100 MCG/2 ML Ampul ONE (14:00)
[2018-06-10] MEDS ORDERED: ceFAZolin Inj 2,000 MG in Sodium Chlor 0.9% Inj 80 ML IV.SIG SCH (14:00)
[2018-06-10] MEDS ORDERED: *morphine SULFATE 4 MG/ML PERIprocedure ONLY ONE (14:14)
[2018-06-10] MEDS ORDERED: ceFAZolin 2 GM Premix Inj 2 GM/50 ML PIGGYBACK IV.SIG ONE (14:55)
--- NOTE | 2018-06-10 15:11 | XR ---
EXAM DATE: 06/10/2018 3:06 PM EDT AGE/SEX: 87 years / Female INDICATIONS: Post op right hip. CLINICAL DATA: This is the patient's initial encounter. Patient reports that signs and symptoms have been present for 1 day and indicates a pain score of Nonresponsive. MEDICAL/SURGICAL HISTORY: Non-responsive. Non-responsive. COMPARISON: [facility], HIP RIGHT W AP PELVIS 2V, 06/09/2018. . FINDINGS: Multiple views of the right hip were obtained and demonstrate that the patient is status post right h ip arthroplasty. The femoral and acetabular components are intact and in normal alignment. There is s oft tissue swelling over the lateral hip and thigh with surgical skin sandy in place. CONCLUSION: Expected postoperative changes status post arthroplasty. Electronically signed by: Nimesh Prather MD 06/10/2018 3:09 PM EDT
[2018-06-10] MEDS ORDERED: Phenylephrine/NS 1000 MCG/10ML Syringe IV.PUSH ONE (17:48)
[2018-06-10] MEDS ORDERED: Glycopyrrolate Inj 1 MG/5 ML Syringe IV.PUSH ONE (17:48)
[2018-06-10] MEDS ORDERED: Neostigmine Inj 5 MG/5 ML Syringe IV.PUSH ONE (17:48)
[2018-06-10] MEDS: Calcium/Vitamin D 250/125 MG Tablet PO SCH (18:02)
[2018-06-10] MEDS: Clindamycin 600 mg/NS Premix 600 MG/50 ML PIGGYBACK IV.SIG SCH (21:02)
[2018-06-10] MEDS: Morphine Inj 4 MG/ML Vial IV.PUSH PRN (21:11)
[2018-06-11 05:20] LABS: Hematocrit 40.5 % (35.0-46.0); Hemoglobin 13.6 gm/dL (11.6-15.3)
[2018-06-11] MEDS: Clindamycin 600 mg/NS Premix 600 MG/50 ML PIGGYBACK IV.SIG SCH ×2 (06:15→13:51)
--- NOTE | 2018-06-11 07:19 | P.PNOP ---
Subjective Interval history: Resting comfortably. She is extremely hard of hearing but is able to understand and communicate Physical Exam Vital signs: Vital Signs 06/10/18 08:00 06/10/18 13:53 06/10/18 14:15 Temperature 97.9 F 97 F L Pulse Rate 69 96 H 89 Respiratory Rate 16 16 15 Blood Pressure 158/70 H 89/55 L 113/60 Pulse Oximetry 98 100 99 06/10/18 14:30 06/10/18 14:45 06/10/18 15:00 Temperature Pulse Rate 93 H 91 H 96 H Respiratory Rate 16 17 15 Blood Pressure 95/56 L 104/73 109/53 L Pulse Oximetry 95 97 06/10/18 15:15 06/10/18 16:00 06/10/18 20:00 Temperature 97.8 F 97.2 F L 97.6 F Pulse Rate 91 H 78 90 Respiratory Rate 14 17 18 Blood Pressure 98/57 L 102/59 L 110/58 L Pulse Oximetry 93 L 96 06/11/18 00:00 06/11/18 04:00 Temperature 97.3 F L 99.2 F Pulse Rate 94 H 92 H Respiratory Rate 18 18 Blood Pressure 145/77 H 163/84 H Pulse Oximetry 96 97 Intake & Output 06/10/18 06/11/18 06/11/18 18:59 06:59 18:59 Intake Total 600 / 600 50 / 50 Output Total 100 / 100 Balance 500 / 500 50 / 50 Intake: IV 600 / 600 50 / 50 Cleocin 600 mg/NS Premix 600 mg 50 / 50 In 50 ml @ 100 mls/hr IV.SIG Q8H KIYA Rx#:[id number] LR 1000 mL Inj 1,000 ML @ 30 600 / 600 mls/hr IV.SIG .Q24H KIYA Rx#: [id number] Output: Estimated Blood Loss 100 / 100 Other: # Voids 1 # Urine Diapers 1 Narrative: Right lower extremity: Clean dry dressings intact. Knee immobilizer in place. Distally intact sensation with active dorsiflexion and plantar flexion foot Results - Labs CBC & Chem 7: 06/11/18 05:00 06/10/18 08:18 Laboratory Results - last 24 hr 06/10/18 06/10/18 06/10/18 07:57 08:18 08:18 WBC 12.5 H RBC 5.13 Hgb 14.6 Hct 43.7 MCV 85.1 MCH 28.4 MCHC 33.4 RDW 15.6 Plt Count 183 MPV 8.0 PT Cancelled INR Cancelled Sodium Potassium Chloride Carbon Dioxide Anion Gap BUN Creatinine Estimated GFR POC Glucose 158 H Random Glucose Calcium 06/10/18 06/10/18 06/10/18 08:18 08:18 14:35 WBC RBC Hgb Hct MCV MCH MCHC RDW Plt Count MPV PT 11.9 H INR 1.2 Sodium 131 L Potassium 3.4 L Chloride 92 L Carbon Dioxide 28.2 Anion Gap 11 BUN 12 Creatinine 0.58 Estimated GFR Greater than 89 POC Glucose 176 H Random Glucose 148 H Calcium 8.7 06/10/18 06/10/18 06/11/18 16:28 21:01 05:00 WBC RBC Hgb 13.6 Hct 40.5 MCV MCH MCHC RDW Plt Count MPV PT INR Sodium Potassium Chloride Carbon Dioxide Anion Gap BUN Creatinine Estimated GFR POC Glucose 161 H 237 H Random Glucose Calcium Microbiology 06/09/18 13:26 Clean Catch Urine Urine Culture - Final 10-50,000 cfu/mL mixed dashawn (probable contaminants) - Imaging Impressions Hip X-Ray 06/10/18 13:30 CONCLUSION: Expected postoperative changes status post arthroplasty. Assessment and Plan - Assessment and Plan Right hip hemiarthroplasty POD 1 Physical therapy weightbearing as tolerated with posterior hip precautions Knee immobilizer while in bed Daily dressing changes beginning POD 2 with dry dressings only of Primapore. May be every other day if no drainage Resume Coumadin E-FORCSE Prescription Drug Monitoring Database has been queried and verified prior to prescribing the controlled substance. Acute pain exception. This patient has normal, predicted, physiological, and time limited response to an adverse mechanical stimulus associated with surgery, trauma, or acute illness as described in my notes. There is a lack of alternative treatment options other than to include the prescribed narcotic treatment for this condition.
[2018-06-11] MEDS: Insulin NovoLOG Aspart Correctional Sugar Inj SQ SCH ×4 (09:41→22:43)
[2018-06-11] MEDS: Atenolol 50 MG Tablet PO SCH ×2 (09:42→21:46)
[2018-06-11] MEDS: Digoxin 125 MCG Tablet PO SCH (09:43)
[2018-06-11] MEDS: Calcium/Vitamin D 250/125 MG Tablet PO SCH ×3 (09:43→18:27)
[2018-06-11] MEDS: Doxazosin 1 MG Tablet PO SCH (09:43)
[2018-06-11] MEDS ORDERED: Bisacodyl 10 MG Supp RECTAL PRN (09:47)
--- NOTE | 2018-06-11 09:47 | P.PNIM ---
Subjective Interval history: Pt upset because she needs help eating due to her being almost blind and there hasn't been an aid available to help her eat. She denies any significant pain at the time of examination Physical Exam Vital signs: Vital Signs 06/10/18 13:53 06/10/18 14:15 06/10/18 14:30 Temperature 97 F L Pulse Rate 96 H 89 93 H Respiratory Rate 16 15 16 Blood Pressure 89/55 L 113/60 95/56 L Pulse Oximetry 100 99 95 06/10/18 14:45 06/10/18 15:00 06/10/18 15:15 Temperature 97.8 F Pulse Rate 91 H 96 H 91 H Respiratory Rate 17 15 14 Blood Pressure 104/73 109/53 L 98/57 L Pulse Oximetry 97 06/10/18 16:00 06/10/18 20:00 06/11/18 00:00 Temperature 97.2 F L 97.6 F 97.3 F L Pulse Rate 78 90 94 H Respiratory Rate 17 18 18 Blood Pressure 102/59 L 110/58 L 145/77 H Pulse Oximetry 93 L 96 96 06/11/18 04:00 06/11/18 08:00 Temperature 99.2 F 97.3 F L Pulse Rate 92 H 105 H Respiratory Rate 18 18 Blood Pressure 163/84 H 161/91 H Pulse Oximetry 97 95 Intake & Output 06/10/18 06/11/18 06/11/18 18:59 06:59 18:59 Intake Total 600 / 600 50 / 50 Output Total 100 / 100 Balance 500 / 500 50 / 50 Intake: IV 600 / 600 50 / 50 Cleocin 600 mg/NS Premix 600 mg 50 / 50 In 50 ml @ 100 mls/hr IV.SIG Q8H KIYA Rx#:[id number] LR 1000 mL Inj 1,000 ML @ 30 600 / 600 mls/hr IV.SIG .Q24H KIYA Rx#: [id number] Output: Estimated Blood Loss 100 / 100 Other: # Voids 1 # Urine Diapers 1 Narrative: General: NAD, anxious Chest: CTA Cardiac: Irregular Abd: +BS, soft ND/NT Ext: RLE dressing is c/d/i. Knee immobilizer in place. Results - Labs CBC & Chem 7: 06/11/18 05:00 06/11/18 11:05 Laboratory Results - last 24 hr 06/10/18 06/10/18 06/10/18 14:35 16:28 21:01 Hgb Hct POC Glucose 176 H 161 H 237 H 06/11/18 06/11/18 05:00 08:26 Hgb 13.6 Hct 40.5 POC Glucose 162 H Microbiology 06/09/18 13:26 Clean Catch Urine Urine Culture - Final 10-50,000 cfu/mL mixed dashawn (probable contaminants) - Imaging Impressions Hip X-Ray 06/10/18 13:30 CONCLUSION: Expected postoperative changes status post arthroplasty. Assessment and Plan - Assessment (1) Hip fracture, right Code(s): S72.001A - Fracture of unspecified part of neck of right femur, initial encounter for closed fracture Status: Acute Plan: Right hip fracture, s/p slip and fall - Pt is an 87 y/o female with atrial fibrillation on chronic anticoagulation with Coumadin. - Pt had a slip and fall at home and was found to have a right transcervical hip fracture which is partially displaced consistent with a grade 3 Garden classification. - INR was 2 at admission. Pt received FFP and Vit K in the ED. INR improved to 1.2 - Orthopedic surgery is following - Pt underwent Right hip hemiarthroplasty on 06/10/[address] Mendoza. - Post-op pain control per Ortho - PT daily - IS - Constipation precautions - Pts son is agreeable to SNF at the end of this hospitalization. A. fib on chronic anticoagulation with Coumadin - Cont. Digoxin - Telemetry DM, type 2 - NovoLog SSI - Accucheck HTN - Cont. home meds - Monitor The exam, history, and the medical decision-making described in the above note were completed with the assistance of the mid-level provider. I reviewed and agree with the findings presented. I attest that I had a [id number] encounter with the patient on the same day, and personally performed and documented my assessment and findings in the medical record. ns for hyponatremia and na 129. cont PT. plan for snf once na corrects and ok with ortho. on lovenox.coumadin when ok with ortho.
[2018-06-11 12:50] LABS: Anion Gap 10 meq/L (5-15); Blood Urea Nitrogen 23 mg/dL (7-18); Carbon Dioxide 25.3 meq/L (21.0-32.0); Chloride 94 meq/L (98-107); Glomerular Filtration Rate Greater Than 89 mL/min (>89); Potassium 3.8 meq/L (3.5-5.1); Sodium 129 meq/L (136-145)
[2018-06-11 12:51] LABS: Calcium 8.4 mg/dL (8.5-10.1); Glucose,Random 208 mg/dL (74-106)
[2018-06-11] MEDS: Enoxaparin Inj 40 MG/0.4 ML Syringe SQ SCH (13:54)
[2018-06-11] MEDS: Sodium Chlor 0.9% Inj 500 ML IV.CONT SCH (18:29)
[2018-06-11] MEDS: Senna/Docusate Sodium 8.6/50 MG Tablet PO SCH (21:46)
[2018-06-12] MEDS: Sodium Chlor 0.9% Inj 500 ML IV.CONT SCH ×4 (00:51→20:24)
[2018-06-12 07:19] LABS: Baso % (Auto) 0.2 % (0.0-2.0); Eos # (Auto) 0.2 th/mm3 (0.0-0.4); Eos % (Auto) 1.5 % (0.0-4.0); Hematocrit 36.6 % (35.0-46.0); Hemoglobin 12.5 gm/dL (11.6-15.3); Lymph # (Auto) 0.8 th/mm3 (1.0-4.8); Mean Corpuscular HGB Conc 34.3 % (32.0-36.0); Mean Corpuscular Hemoglobin 29.4 pg (27.0-34.0); Mean Corpuscular Volume 85.9 fL (80.0-100.0); Mean Platelet Volume 8.4 fL (7.0-11.0); Mono # (Auto) 0.6 th/mm3 (0.0-0.9); Mono % (Auto) 5.5 % (0.0-8.0); Neut # (Auto) 8.8 th/mm3 (1.8-7.7); Neut % (Auto) 84.8 % (16.0-70.0); Platelet Count 181 th/mm3 (150-450); Red Blood Count 4.26 mil/mm3 (4.00-5.30); Red Cell Distribution Width 15.6 % (11.6-17.2); White Blood Count 10.3 th/mm3 (4.0-11.0)
--- NOTE | 2018-06-12 07:40 | P.PNOP ---
Subjective Interval history: POD 2 s/p right hip hemiarthroplasty doing well. states pain but controlled. Physical Exam Vital signs: Vital Signs 06/11/18 08:00 06/11/18 11:53 06/11/18 16:00 Temperature 97.3 F L 97.2 F L 97.2 F L Pulse Rate 105 H 94 H 88 Respiratory Rate 18 18 18 Blood Pressure 161/91 H 109/72 89/50 L Pulse Oximetry 95 92 L 91 L 06/11/18 20:00 06/12/18 00:00 06/12/18 04:00 Temperature 97.7 F 97.9 F 97.1 F L Pulse Rate 94 H 93 H 105 H Respiratory Rate 15 15 16 Blood Pressure 105/61 109/67 110/67 Pulse Oximetry 91 L 92 L 92 L Intake & Output 06/11/18 06/12/18 06/12/18 18:59 06:59 18:59 Intake Total 960 / 960 240 / 240 Balance 960 / 960 240 / 240 Weight 57.9 kg Intake: Oral 960 / 960 240 / 240 Other: # Voids 3 3 # Incontinent Voids 3 Narrative: RLE: dressing clean and dry. intact. NVI. +CKS Results - Labs CBC & Chem 7: 06/12/18 06:05 06/11/18 11:05 Laboratory Results - last 24 hr 06/11/18 06/11/18 06/11/18 08:26 11:05 17:37 WBC RBC Hgb Hct MCV MCH MCHC RDW Plt Count MPV Neut % (Auto) Lymph % (Auto) [place] % (Auto) Eos % (Auto) Baso % (Auto) Neut # (Auto) Lymph # (Auto) [place] # (Auto) Eos # (Auto) Baso # (Auto) WBC Differential Differential Comment PT INR Sodium 129 L Potassium 3.8 Chloride 94 L Carbon Dioxide 25.3 Anion Gap 10 BUN 23 H Creatinine 0.61 Estimated GFR Greater than 89 POC Glucose 162 H 262 H Random Glucose 208 H Calcium 8.4 L 06/11/18 06/12/18 06/12/18 21:44 06:05 06:05 WBC 10.3 RBC 4.26 Hgb 12.5 Hct 36.6 MCV 85.9 MCH 29.4 MCHC 34.3 RDW 15.6 Plt Count 181 MPV 8.4 Neut % (Auto) 84.8 H Lymph % (Auto) 8.0 L [place] % (Auto) 5.5 Eos % (Auto) 1.5 Baso % (Auto) 0.2 Neut # (Auto) 8.8 H Lymph # (Auto) 0.8 L [place] # (Auto) 0.6 Eos # (Auto) 0.2 Baso # (Auto) 0.0 WBC Differential . Differential Comment Auto diff final PT 10.0 INR 1.0 Sodium Potassium Chloride Carbon Dioxide Anion Gap BUN Creatinine Estimated GFR POC Glucose 234 H Random Glucose Calcium Assessment and Plan - Assessment and Plan Right hip hemiarthroplasty POD 2 Physical therapy weightbearing as tolerated with posterior hip precautions Knee immobilizer while in bed Daily dressing changes beginning POD 2 with dry dressings only of [place]. May be every other day if no drainage Resume Coumadin CM for rehab placement ortho clear for DC to rehab once arrangements made f/u with [facility] or [facility] in 2 weeks E-FORE Prescription Drug Monitoring Database has been queried and verified prior to prescribing the controlled substance. Acute pain exception. This patient has normal, predicted, physiological, and time limited response to an adverse mechanical stimulus associated with surgery, trauma, or acute illness as described in my notes. There is a lack of alternative treatment options other than to include the prescribed narcotic treatment for this condition.
[2018-06-12 07:55] LABS: Anion Gap 8 meq/L (5-15); Blood Urea Nitrogen 25 mg/dL (7-18); Calcium 8.4 mg/dL (8.5-10.1); Carbon Dioxide 27.1 meq/L (21.0-32.0); Chloride 93 meq/L (98-107); Glomerular Filtration Rate Greater Than 89 mL/min (>89); Glucose,Random 112 mg/dL (74-106); Potassium 3.6 meq/L (3.5-5.1); Sodium 128 meq/L (136-145)
[2018-06-12] MEDS: Calcium/Vitamin D 250/125 MG Tablet PO SCH ×3 (08:55→16:59)
[2018-06-12] MEDS: Doxazosin 1 MG Tablet PO SCH (08:55)
[2018-06-12] MEDS: Digoxin 125 MCG Tablet PO SCH (08:55)
[2018-06-12] MEDS: Atenolol 50 MG Tablet PO SCH ×2 (08:55→20:23)
[2018-06-12] MEDS: Senna/Docusate Sodium 8.6/50 MG Tablet PO SCH ×2 (08:55→20:23)
[2018-06-12] MEDS: Insulin NovoLOG Aspart Correctional Sugar Inj SQ SCH ×4 (08:56→20:24)
--- NOTE | 2018-06-12 09:01 | P.PNIM ---
Subjective Interval history: Pain is fairly well controlled No new issues overnight Physical Exam Vital signs: Vital Signs 06/11/18 11:53 06/11/18 16:00 06/11/18 20:00 Temperature 97.2 F L 97.2 F L 97.7 F Pulse Rate 94 H 88 94 H Respiratory Rate 18 18 15 Blood Pressure 109/72 89/50 L 105/61 Pulse Oximetry 92 L 91 L 91 L 06/12/18 00:00 06/12/18 04:00 06/12/18 08:00 Temperature 97.9 F 97.1 F L 98.4 F Pulse Rate 93 H 105 H 130 H Respiratory Rate 15 16 18 Blood Pressure 109/67 110/67 137/78 Pulse Oximetry 92 L 92 L 93 L Intake & Output 06/11/18 06/12/18 06/12/18 18:59 06:59 18:59 Intake Total 960 / 960 240 / 240 Balance 960 / 960 240 / 240 Weight 57.9 kg Intake: Oral 960 / 960 240 / 240 Other: # Voids 3 3 # Incontinent Voids 3 Narrative: General: NAD, anxious Chest: CTA Cardiac: Irregular Abd: +BS, soft ND/NT Ext: RLE dressing is c/d/i. Knee immobilizer in place. Results - Labs CBC & Chem 7: 06/12/18 06:05 06/12/18 06:05 Laboratory Results - last 24 hr 06/11/18 06/11/18 06/11/18 11:05 17:37 21:44 WBC RBC Hgb Hct MCV MCH MCHC RDW Plt Count MPV Neut % (Auto) Lymph % (Auto) [place] % (Auto) Eos % (Auto) Baso % (Auto) Neut # (Auto) Lymph # (Auto) [place] # (Auto) Eos # (Auto) Baso # (Auto) WBC Differential Differential Comment PT INR Sodium 129 L Potassium 3.8 Chloride 94 L Carbon Dioxide 25.3 Anion Gap 10 BUN 23 H Creatinine 0.61 Estimated GFR Greater than 89 POC Glucose 262 H 234 H Random Glucose 208 H Calcium 8.4 L 06/12/18 06/12/18 06/12/18 06:05 06:05 06:05 WBC 10.3 RBC 4.26 Hgb 12.5 Hct 36.6 MCV 85.9 MCH 29.4 MCHC 34.3 RDW 15.6 Plt Count 181 MPV 8.4 Neut % (Auto) 84.8 H Lymph % (Auto) 8.0 L [place] % (Auto) 5.5 Eos % (Auto) 1.5 Baso % (Auto) 0.2 Neut # (Auto) 8.8 H Lymph # (Auto) 0.8 L [place] # (Auto) 0.6 Eos # (Auto) 0.2 Baso # (Auto) 0.0 WBC Differential . Differential Comment Auto diff final PT 10.0 INR 1.0 Sodium 128 L Potassium 3.6 Chloride 93 L Carbon Dioxide 27.1 Anion Gap 8 BUN 25 H Creatinine 0.55 Estimated GFR Greater than 89 POC Glucose Random Glucose 112 H Calcium 8.4 L 06/12/18 07:39 WBC RBC Hgb Hct MCV MCH MCHC RDW Plt Count MPV Neut % (Auto) Lymph % (Auto) [place] % (Auto) Eos % (Auto) Baso % (Auto) Neut # (Auto) Lymph # (Auto) [place] # (Auto) Eos # (Auto) Baso # (Auto) WBC Differential Differential Comment PT INR Sodium Potassium Chloride Carbon Dioxide Anion Gap BUN Creatinine Estimated GFR POC Glucose 173 H Random Glucose Calcium Assessment and Plan - Assessment (1) Hip fracture, right Code(s): S72.001A - Fracture of unspecified part of neck of right femur, initial encounter for closed fracture Status: Acute Plan: Right hip fracture, s/p slip and fall - Pt is an 87 y/o female with atrial fibrillation on chronic anticoagulation with Coumadin. - Pt had a slip and fall at home and was found to have a right transcervical hip fracture which is partially displaced consistent with a grade 3 Garden classification. - INR was 2 at admission. Pt received FFP and Vit K in the ED. INR improved to 1.2 - Orthopedic surgery is following - Pt underwent Right hip hemiarthroplasty on 06/10/[address] Mendoza. - Post-op pain control per Ortho - PT daily - IS - DVT prophylaxis with Lovenox - Coumadin can be resumed per Ortho notes, will resume home dose this afternoon - Constipation precautions - Pts Na+ was low at 129 on 06/11 pt given NS overnight but no improvement in her Na+ level - Pts son is agreeable to SNF at the end of this hospitalization. A. fib on chronic anticoagulation with Coumadin - Cont. Digoxin - Telemetry DM, type 2 - NovoLog SSI - Accucheck HTN - Cont. home meds - Monitor . The exam, history, and the medical decision-making described in the above note were completed with the assistance of the mid-level provider. I reviewed and agree with the findings presented. I attest that I had a [id number] encounter with the patient on the same day, and personally performed and documented my assessment and findings in the medical record. dc to snf once hyponatremia corrected.updated son. ns. nacl tabs. serum/urine osmols and urine na
[2018-06-12] MEDS: Enoxaparin Inj 40 MG/0.4 ML Syringe SQ SCH (12:12)
[2018-06-12] MEDS: Sodium Chloride 1 GM Tablet PO SCH ×2 (12:12→20:23)
[2018-06-13] MEDS: Sodium Chlor 0.9% Inj 500 ML IV.CONT SCH (06:01)
[2018-06-13 06:28] LABS: Baso % (Auto) 0.3 % (0.0-2.0); Eos # (Auto) 0.3 th/mm3 (0.0-0.4); Hematocrit 33.6 % (35.0-46.0); Hemoglobin 11.5 gm/dL (11.6-15.3); Lymph # (Auto) 0.8 th/mm3 (1.0-4.8); Lymph % (Auto) 10.3 % (9.0-44.0); Mean Corpuscular HGB Conc 34.3 % (32.0-36.0); Mean Corpuscular Hemoglobin 29.4 pg (27.0-34.0); Mean Corpuscular Volume 85.6 fL (80.0-100.0); Mono # (Auto) 0.5 th/mm3 (0.0-0.9); Neut # (Auto) 5.7 th/mm3 (1.8-7.7); Neut % (Auto) 78.4 % (16.0-70.0); Platelet Count 178 th/mm3 (150-450); Red Blood Count 3.93 mil/mm3 (4.00-5.30); Red Cell Distribution Width 15.7 % (11.6-17.2); White Blood Count 7.3 th/mm3 (4.0-11.0)
[2018-06-13 06:31] LABS: Prothrombin Time 10.4 sec (9.8-11.6)
[2018-06-13 06:47] LABS: Anion Gap 8 meq/L (5-15); Blood Urea Nitrogen 20 mg/dL (7-18); Calcium 8.1 mg/dL (8.5-10.1); Carbon Dioxide 27.5 meq/L (21.0-32.0); Chloride 97 meq/L (98-107); Glomerular Filtration Rate Greater Than 89 mL/min (>89); Glucose,Random 128 mg/dL (74-106); Potassium 3.4 meq/L (3.5-5.1); Sodium 132 meq/L (136-145)
--- NOTE | 2018-06-13 07:25 | P.PNOP ---
Subjective Interval history: POd 3 s/p right hip hemiarthroplasty no changes. resting comfortably Physical Exam Vital signs: Vital Signs 06/12/18 08:00 06/12/18 12:00 06/12/18 16:00 Temperature 98.4 F 97.8 F 97.3 F L Pulse Rate 130 H 97 H 98 H Respiratory Rate 18 17 16 Blood Pressure 137/78 132/70 117/61 Pulse Oximetry 93 L 95 95 06/12/18 20:00 06/13/18 00:00 Temperature 98.3 F 97.8 F Pulse Rate 99 H 73 Respiratory Rate 14 16 Blood Pressure 132/79 138/83 Pulse Oximetry 94 L 96 Intake & Output 06/12/18 06/13/18 06/13/18 18:59 06:59 18:59 Intake Total 500 / 500 360 / 360 Output Total 400 / 400 Balance 500 / 500 -40 / -40 Intake: IV 500 / 500 NS Inj 500 ML @ 50 mls/hr IV. 500 / 500 CONT .Q10H KIYA Rx#:[id number] Oral 360 / 360 Output: Urine 400 / 400 Other: # Voids 3 2 # Bowel Movements 0 Narrative: RLE dressing is c/d/i. Knee immobilizer in place. Results - Labs CBC & Chem 7: 06/13/18 05:20 06/13/18 05:20 Laboratory Results - last 24 hr 06/12/18 06/12/18 06/12/18 06:05 06:05 06:05 WBC RBC Hgb Hct MCV MCH MCHC RDW Plt Count MPV Neut % (Auto) Lymph % (Auto) [place] % (Auto) Eos % (Auto) Baso % (Auto) Neut # (Auto) Lymph # (Auto) [place] # (Auto) Eos # (Auto) Baso # (Auto) WBC Differential Differential Comment PT 10.0 INR 1.0 Sodium 128 L Potassium 3.6 Chloride 93 L Carbon Dioxide 27.1 Anion Gap 8 BUN 25 H Creatinine 0.55 Estimated GFR Greater than 89 POC Glucose Random Glucose 112 H Osmolality 273 L Calcium 8.4 L Urine Osmolality Ur Random Sodium 06/12/18 06/12/18 06/12/18 07:39 11:21 16:34 WBC RBC Hgb Hct MCV MCH MCHC RDW Plt Count MPV Neut % (Auto) Lymph % (Auto) [place] % (Auto) Eos % (Auto) Baso % (Auto) Neut # (Auto) Lymph # (Auto) [place] # (Auto) Eos # (Auto) Baso # (Auto) WBC Differential Differential Comment PT INR Sodium Potassium Chloride Carbon Dioxide Anion Gap BUN Creatinine Estimated GFR POC Glucose 173 H 211 H 179 H Random Glucose Osmolality Calcium Urine Osmolality Ur Random Sodium 06/12/18 06/13/18 06/13/18 20:22 04:30 04:30 WBC RBC Hgb Hct MCV MCH MCHC RDW Plt Count MPV Neut % (Auto) Lymph % (Auto) [place] % (Auto) Eos % (Auto) Baso % (Auto) Neut # (Auto) Lymph # (Auto) [place] # (Auto) Eos # (Auto) Baso # (Auto) WBC Differential Differential Comment PT INR Sodium Potassium Chloride Carbon Dioxide Anion Gap BUN Creatinine Estimated GFR POC Glucose 277 H Random Glucose Osmolality Calcium Urine Osmolality 802 Ur Random Sodium 42 06/13/18 06/13/18 06/13/18 05:20 05:20 05:20 WBC 7.3 RBC 3.93 L Hgb 11.5 L Hct 33.6 L MCV 85.6 MCH 29.4 MCHC 34.3 RDW 15.7 Plt Count 178 MPV 8.0 Neut % (Auto) 78.4 H Lymph % (Auto) 10.3 [place] % (Auto) 7.0 Eos % (Auto) 4.0 Baso % (Auto) 0.3 Neut # (Auto) 5.7 Lymph # (Auto) 0.8 L [place] # (Auto) 0.5 Eos # (Auto) 0.3 Baso # (Auto) 0.0 WBC Differential . Differential Comment Auto diff final PT 10.4 INR 1.0 Sodium 132 L Potassium 3.4 L Chloride 97 L Carbon Dioxide 27.5 Anion Gap 8 BUN 20 H Creatinine 0.44 L Estimated GFR Greater than 89 POC Glucose Random Glucose 128 H Osmolality Calcium 8.1 L Urine Osmolality Ur Random Sodium Assessment and Plan - Assessment and Plan Right hip hemiarthroplasty POD 3 Physical therapy weightbearing as tolerated with posterior hip precautions Knee immobilizer while in bed Daily dressing changes beginning POD 2 with dry dressings only of [place]. May be every other day if no drainage Resume Coumadin CM for rehab placement ortho clear for DC to rehab once arrangements made f/u with [facility] or [facility] in 2 weeks E-FORCSE Prescription Drug Monitoring Database has been queried and verified prior to prescribing the controlled substance. Acute pain exception. This patient has normal, predicted, physiological, and time limited response to an adverse mechanical stimulus associated with surgery, trauma, or acute illness as described in my notes. There is a lack of alternative treatment options other than to include the prescribed narcotic treatment for this condition.
[2018-06-13] MEDS: Atenolol 50 MG Tablet PO SCH (08:49)
[2018-06-13] MEDS: Digoxin 125 MCG Tablet PO SCH (08:49)
[2018-06-13] MEDS: Calcium/Vitamin D 250/125 MG Tablet PO SCH ×2 (08:49→12:30)
[2018-06-13] MEDS: Sodium Chloride 1 GM Tablet PO SCH (08:49)
[2018-06-13] MEDS: Senna/Docusate Sodium 8.6/50 MG Tablet PO SCH (08:49)
[2018-06-13] MEDS: Insulin NovoLOG Aspart Correctional Sugar Inj SQ SCH ×2 (08:50→12:30)
[2018-06-13] MEDS: Doxazosin 1 MG Tablet PO SCH (08:50)
[2018-06-13] MEDS: Morphine Inj 4 MG/ML Vial IV.PUSH PRN (09:04)
--- NOTE | 2018-06-13 11:38 | P.DS ---
<Sushma Mata E - Last Filed: 06/13/18 11:28> Date of admission: 06/09/18 15:03 Primary care physician: Capo Coffman MD Attending physician on discharge: Sherif Brock Anticipated date of discharge: 06/13/18 Brief History from admission: Pt is 87 yo with afib on coumadin, htn, dm 2 who presents to ED with hip pain. Son her caregiver is present. Says she slipped on stool on floor in her bathroom. Son says she intermittently has stool incontinence. She is found to have hip fracture and Ortho notified by ED and I'm told surgery planned for tomorrow. INR 2 and ffp and vit k given in ED. She seems comfortable after morphine 4mg iv. Son understands the cardiopulmonary risk and risk of with surgery but he wants to proceed to OR as she will certainly w/out hip repair. DS: Diagnosis - Discharge Diagnosis (1) Hip fracture, right Status: Acute DS: Medications - Discharge Medications Prescriptions: hydrocodone-acetaminophen [[place]] 1 tab PO Q4H #40 tab DS: Summary Hospital Course: Right hip fracture, s/p slip and fall - Pt is an 87 y/o female with atrial fibrillation on chronic anticoagulation with Coumadin. Pt had a slip and fall at home and was found to have a right transcervical hip fracture which is partially displaced consistent with a grade 3 Garden classification. Orthopedic surgery is following. INR was 2 at admission. Pt received FFP and Vit K in the ED. INR improved to 1.2. Pt underwent Right hip hemiarthroplasty on 06/10/[address] Mendoza. Pt ws started on DVT prophylaxis with Lovenox. Coumadin was resumed on 06/12/18 after Ortho clearance at her home dose of 7.5mg on and 5mg on - . During admission, pts Na+ was low at 129 on 06/11 and 128 on 06/12 pt was ordered a bag of NS on 06/11 but it was not given until the sewing demonstrator on 06/12. Repeat labs on 06/13 with Na+ of 132. SIADH labs were checked and were negative. Pt planned for discharge to [facility] on 06/13 Pt will continue daily INR checks until INR is at 2 or above, then Lovenox can be stopped and INR can be checked on Mondays and . Pt will need to followup with Dr. Mendoza in 2 weeks Pt will need to followup with her PCP, Dr. Coffman, 1 week after discharge from SNF. A. fib on chronic anticoagulation with Coumadin - Cont. Digoxin and Coumadin DM, type 2 - Resume home meds upon discharge. HTN - Cont. home meds - Time Spent with Patient Total time spent providing and/or coordinating discharge services: Exam Vital signs: Vital Signs 06/12/18 12:00 06/12/18 16:00 06/12/18 20:00 Temperature 97.8 F 97.3 F L 98.3 F Pulse Rate 97 H 98 H 99 H Respiratory Rate 17 16 14 Blood Pressure 132/70 117/61 132/79 Pulse Oximetry 95 95 94 L 06/13/18 00:00 06/13/18 08:00 Temperature 97.8 F 98.0 F Pulse Rate 73 84 Respiratory Rate 16 16 Blood Pressure 138/83 118/63 Pulse Oximetry 96 97 Intake & Output 06/12/18 06/13/18 06/13/18 18:59 06:59 18:59 Intake Total 500 / 500 360 / 360 Output Total 400 / 400 Balance 500 / 500 -40 / -40 Intake: IV 500 / 500 NS Inj 500 ML @ 50 mls/hr IV. 500 / 500 CONT .Q10H KIYA Rx#:[id number] Oral 360 / 360 Output: Urine 400 / 400 Other: # Voids 3 2 # Bowel Movements 0 Narrative: GENERAL: NAD, Awake and alert CARDIO: Irregular RESP: Breath sounds equal bilaterally. No accessory muscle use. ABD: +BS, soft, non-tender, nondistended. EXT: No edema. Bandages are c/d/i. Knee immobilizer in place. Results Procedures completed during hospitalization: See summary above Labs on day of discharge: Labs from last 24 hours 06/13/18 06/13/18 06/13/18 07:37 05:20 05:20 WBC RBC Hgb Hct MCV MCH MCHC RDW Plt Count MPV Neut % (Auto) Lymph % (Auto) [place] % (Auto) Eos % (Auto) Baso % (Auto) Neut # (Auto) Lymph # (Auto) [place] # (Auto) Eos # (Auto) Baso # (Auto) WBC Differential Differential Comment PT 10.4 INR 1.0 Sodium 132 L Potassium 3.4 L Chloride 97 L Carbon Dioxide 27.5 Anion Gap 8 BUN 20 H Creatinine 0.44 L Estimated GFR Greater than 89 POC Glucose 143 H Random Glucose 128 H Osmolality Calcium 8.1 L Urine Osmolality Ur Random Sodium 06/13/18 06/13/18 06/13/18 05:20 04:30 04:30 WBC 7.3 RBC 3.93 L Hgb 11.5 L Hct 33.6 L MCV 85.6 MCH 29.4 MCHC 34.3 RDW 15.7 Plt Count 178 MPV 8.0 Neut % (Auto) 78.4 H Lymph % (Auto) 10.3 [place] % (Auto) 7.0 Eos % (Auto) 4.0 Baso % (Auto) 0.3 Neut # (Auto) 5.7 Lymph # (Auto) 0.8 L [place] # (Auto) 0.5 Eos # (Auto) 0.3 Baso # (Auto) 0.0 WBC Differential . Differential Comment Auto diff final PT INR Sodium Potassium Chloride Carbon Dioxide Anion Gap BUN Creatinine Estimated GFR POC Glucose Random Glucose Osmolality Calcium Urine Osmolality 802 Ur Random Sodium 42 06/12/18 06/12/18 06/12/18 20:22 16:34 06:05 WBC RBC Hgb Hct MCV MCH MCHC RDW Plt Count MPV Neut % (Auto) Lymph % (Auto) [place] % (Auto) Eos % (Auto) Baso % (Auto) Neut # (Auto) Lymph # (Auto) [place] # (Auto) Eos # (Auto) Baso # (Auto) WBC Differential Differential Comment PT INR Sodium Potassium Chloride Carbon Dioxide Anion Gap BUN Creatinine Estimated GFR POC Glucose 277 H 179 H Random Glucose Osmolality 273 L Calcium Urine Osmolality Ur Random Sodium - Impressions ITS Impressions Pelvis CT 06/09/18 14:20 CONCLUSION: 1. Right transcervical hip fracture which is partially displaced consistent with a grade 3 Garden classification. Chest X-Ray 06/09/18 14:46 CONCLUSION: No acute cardiopulmonary disease. Hip X-Ray 06/10/18 13:30 CONCLUSION: Expected postoperative changes status post arthroplasty. <Sherif Brock - Last Filed: 06/13/18 13:14> Date of admission: 06/09/18 15:03 Primary care physician: Capo Coffman MD DS: Diagnosis - Discharge Diagnosis (1) Hip fracture, right Status: Acute DS: Summary - Time Spent with Patient Total time spent providing and/or coordinating discharge services: Exam Vital signs: Vital Signs 06/12/18 16:00 06/12/18 20:00 06/13/18 00:00 Temperature 97.3 F L 98.3 F 97.8 F Pulse Rate 98 H 99 H 73 Respiratory Rate 16 14 16 Blood Pressure 117/61 132/79 138/83 Pulse Oximetry 95 94 L 96 06/13/18 08:00 06/13/18 12:00 Temperature 98.0 F 97.9 F Pulse Rate 84 92 H Respiratory Rate 16 16 Blood Pressure 118/63 132/73 Pulse Oximetry 97 97 Intake & Output 06/12/18 06/13/18 06/13/18 18:59 06:59 18:59 Intake Total 500 / 500 360 / 360 Output Total 400 / 400 Balance 500 / 500 -40 / -40 Intake: IV 500 / 500 NS Inj 500 ML @ 50 mls/hr IV. 500 / 500 CONT .Q10H KIYA Rx#:[id number] Oral 360 / 360 Output: Urine 400 / 400 Other: # Voids 3 2 # Bowel Movements 0 Results Labs on day of discharge: Labs from last 24 hours 06/13/18 06/13/18 06/13/18 12:03 07:37 05:20 WBC RBC Hgb Hct MCV MCH MCHC RDW Plt Count MPV Neut % (Auto) Lymph % (Auto) [place] % (Auto) Eos % (Auto) Baso % (Auto) Neut # (Auto) Lymph # (Auto) [place] # (Auto) Eos # (Auto) Baso # (Auto) WBC Differential Differential Comment PT INR Sodium 132 L Potassium 3.4 L Chloride 97 L Carbon Dioxide 27.5 Anion Gap 8 BUN 20 H Creatinine 0.44 L Estimated GFR Greater than 89 POC Glucose 290 H 143 H Random Glucose 128 H Calcium 8.1 L Urine Osmolality Ur Random Sodium 06/13/18 06/13/18 06/13/18 05:20 05:20 04:30 WBC 7.3 RBC 3.93 L Hgb 11.5 L Hct 33.6 L MCV 85.6 MCH 29.4 MCHC 34.3 RDW 15.7 Plt Count 178 MPV 8.0 Neut % (Auto) 78.4 H Lymph % (Auto) 10.3 [place] % (Auto) 7.0 Eos % (Auto) 4.0 Baso % (Auto) 0.3 Neut # (Auto) 5.7 Lymph # (Auto) 0.8 L [place] # (Auto) 0.5 Eos # (Auto) 0.3 Baso # (Auto) 0.0 WBC Differential . Differential Comment Auto diff final PT 10.4 INR 1.0 Sodium Potassium Chloride Carbon Dioxide Anion Gap BUN Creatinine Estimated GFR POC Glucose Random Glucose Calcium Urine Osmolality Ur Random Sodium 42 06/13/18 06/12/18 06/12/18 04:30 20:22 16:34 WBC RBC Hgb Hct MCV MCH MCHC RDW Plt Count MPV Neut % (Auto) Lymph % (Auto) [place] % (Auto) Eos % (Auto) Baso % (Auto) Neut # (Auto) Lymph # (Auto) [place] # (Auto) Eos # (Auto) Baso # (Auto) WBC Differential Differential Comment PT INR Sodium Potassium Chloride Carbon Dioxide Anion Gap BUN Creatinine Estimated GFR POC Glucose 277 H 179 H Random Glucose Calcium Urine Osmolality 802 Ur Random Sodium - Impressions ITS Impressions Pelvis CT 06/09/18 14:20 CONCLUSION: 1. Right transcervical hip fracture which is partially displaced consistent with a grade 3 Garden classification. Chest X-Ray 06/09/18 14:46 CONCLUSION: No acute cardiopulmonary disease. Hip X-Ray 06/10/18 13:30 CONCLUSION: Expected postoperative changes status post arthroplasty. Discharge Plan - Discharge Order Discharge Orders: Discharge Order (Routine); Ordered 06/13/18 Ordered By: Sushma Mata Orthopedic Clear for Discharge (Routine); Ordered 06/12/18 Ordered By: Chato Doss - Discharge Details Anticipated Discharge Date: 06/13/18 - Physicians Team Primary Care Provider: Capo Coffman Attending Provider: Sherif Brock Other Providers: Corona Bonilla MD ; Timmy Mendoza MD ; [facility] [place] ; [facility]
[2018-06-13] MEDS: Enoxaparin Inj 40 MG/0.4 ML Syringe SQ SCH (12:31)
== END 2018-06-13 17:49 ==
LOC: NEPE 12:28 → NEDA 15:03 → N07 21:03
PROVIDERS: ADMIT Hospitalist; ATTEND Hospitalist